=== PATIENT | male | born 1975 | race Caucasian/White ===

== ENCOUNTER 2021-01-04 07:48 | Emergency (ER) | payer MEDICAID ==
[~2021-01-04] VITALS: Ht 175.3 cm; Wt 79.4 kg
[2021-01-04 07:56] VITALS: BP 160/114
--- NOTE | 2021-01-04 07:58 | NUR ---
biba to bed 03
--- NOTE | 2021-01-04 08:00 | NUR ---
Pt biba for substance abuse. Per EMS pt OD on Fentanyl. Bystanders were attempting to perform CPR. Upon EMS arrival, pt given 8mg of Narcan. Pt A&O x3. GCS 14. Pt unable to recall events that occured prior to arrival to ER. VSS. Pt repeated states "I don't know what happened, but I feel weird." No acute distress noted at this time. Pt on cardiac tele monitor. Awaiting for ERMD to evaluate pt.
--- NOTE | 2021-01-04 08:09 | NUR ---
Dr. Gilbert evaluating pt at bedside
--- NOTE | 2021-01-04 08:12 | NUR ---
Pt ambulated with steady gait to restroom to provide urine sample.
--- NOTE | 2021-01-04 08:17 | NUR ---
Pt girlfriend called, Aide. Pt okay to update on information. To call Aide upon discharge.
[2021-01-04 09:09] VITALS: BP 164/110
--- NOTE | 2021-01-04 09:25 | NUR ---
Pt up for discharge. Awaiting for ride at this time.
--- NOTE | 2021-01-04 09:29 | NUR ---
Patient discharged with v/s stable. Written and verbal after care instructions given and explained. Patient verbalized understanding. Ambulatory with to car. All questions addressed prior to discharge. Advised to follow up with PMD.
== END 2021-01-04 09:29 | disposition home or self-care (01) ==
LOC: MED 07:48
DX: T40.411A Poisoning by fentanyl or fentanyl analogs, accidental (unintentional), initial encounter (principal); R40.20 Unspecified coma; F15.10 Other stimulant abuse, uncomplicated; R03.0 Elevated blood-pressure reading, without diagnosis of hypertension; Y92.89 Other specified places as the place of occurrence of the external cause
CPT/HCPCS: 99283

== ENCOUNTER 2023-12-30 16:05 | Emergency (ER) | payer MEDICAID, OTHER ==
[~2023-12-30] VITALS: Ht 175.3 cm; Wt 74.8 kg
[2023-12-30 16:17] VITALS: BP 148/102; RESP 18; TEMP 98.2; O2SAT 100
[2023-12-30 16:23] VITALS: O2SAT 100
[2023-12-30] MEDS: MORPHINE SULFATE 4 MG/ML SYR IM ONE (17:12)
[2023-12-30] MEDS ORDERED: ACET-10509 PO (18:31)
[2023-12-30] MEDS ORDERED: IBUP-2213 PO (18:31)
[2023-12-30] MEDS ORDERED: AMOX-1230 PO (18:31)
== END 2023-12-30 18:42 | disposition home or self-care (01) ==
LOC: MED 16:05
DX: S91.312A Laceration without foreign body, left foot, initial encounter (principal); I10 Essential (primary) hypertension; Z79.899 Other long term (current) drug therapy; W54.0XXA Bitten by dog, initial encounter; Y93.89 Activity, other specified; Y92.89 Other specified places as the place of occurrence of the external cause; Y99.8 Other external cause status
CPT/HCPCS: 73620; 96372; 99283; J2270